=== PATIENT | male | born 1995 | race Caucasian/White ===

== ENCOUNTER 2018-03-25 17:35 | Emergency (ER) | payer OTHER ==
[2018-03-25 17:48] VITALS: BP 158/98; PULSE 99; TEMP 98.5; BMI 33.7
--- NOTE | 2018-03-25 17:49 | PDOC ---
Rapid Medical Evaluation Time Seen by Provider: 03/25/18 17:45 Medical Evaluation: Allergies Allergy/AdvReac Type Severity Reaction Status Date / Time No Known Allergies Allergy Verified 03/25/18 17:40 03/25/18 17:46 Pt. with penile drainage presents for STD screening. Exam: AAOx3 NAD, ambulatory Orders: STD testing Pt to proceed to ED for further evaluation Discharge Disposition - Diagnosis Screening for STD (sexually transmitted disease) - Referrals - Patient Instructions - Post Discharge Activity
[2018-03-25] MEDS ORDERED: AZITHROMYCIN 250 MG TABLET PO ONE (17:58)
--- NOTE | 2018-03-25 18:07 | PDOC ---
History of Present Illness - General Chief Complaint: Penile Drainage Stated Complaint: STD TESTING Time Seen by Provider: 03/25/18 17:45 - History of Present Illness Initial Comments: 22-year-old male free of any comorbidities presents for evaluation requesting STD testing. He states he's had unprotected sexual relationship with a new partner. He has no systemic symptoms he has mild discomfort in his left inguinal area. No other associated symptoms no penile discharge. 03/25/18 18:04 Past History - Past Medical History Allergies/Adverse Reactions: Allergies Allergy/AdvReac Type Severity Reaction Status Date / Time No Known Allergies Allergy Verified 03/25/18 17:40 Home Medications: Ambulatory Orders NK [No Known Home Medication] 03/25/18 COPD: No - Immunization History Immunization Up to Date: Yes - Suicide/Smoking/Psychosocial Hx Smoking History: Never smoked Information on smoking cessation initiated: No Hx Alcohol Use: No Drug/Substance Use Hx: No Substance Use Type: None Review of Systems - Review of Systems : Yes: See HPI All Other Systems: Reviewed and Negative *Physical Exam - Vital Signs Last Vital Signs Temp Pulse Resp BP Pulse Ox 98.5 F 99 H 16 158/98 98 03/25/18 17:43 03/25/18 17:43 03/25/18 17:43 03/25/18 17:43 03/25/18 17:43 - Physical Exam Comments: The external genitalia are normal there is no tenderness or inguinal adenopathy there is no discharge from the urethra 03/25/18 18:06 Medical Decision Making - Medical Decision Making Patient is requesting HIV testing which we can do in the emergency room. Given his past sexual history he would like to be treated for gonorrhea and chlamydia which I have ordered the appropriate antibiotics. He will wait for HIV results. 03/25/18 18:06 *DC/Admit/Observation/Transfer Diagnosis at time of Disposition: Screening for STD (sexually transmitted disease) - Discharge Dispostion Disposition: HOME Condition at time of disposition: Stable Decision to Admit order: No - Referrals - Patient Instructions Printed Discharge Instructions: How to Detect and Treat STDs, Facts About Sexually Transmitted Infections Additional Instructions: Return to the emergency room should you experience any symptoms such as discharge from the penis. Your HIV test was negative. You have treated for gonorrhea and chlamydia. Follow-up with primary care physician in the next 1-2 days for further evaluation and treatment management. - Post Discharge Activity
[2018-03-25 18:21] LABS: URINE APPEARANCE CLEAR; URINE BILIRUBIN NEGATIVE (<2.0 mg/dL); URINE COLOR YELLOW; URINE GLUCOSE (UA) NEGATIVE (NEGATIVE); URINE KETONE NEGATIVE (NEGATIVE); URINE LEUK ESTERASE NEGATIVE (NEGATIVE); URINE NITRITE NEGATIVE (NEGATIVE); URINE PROTEIN NEGATIVE (NEGATIVE)
[2018-03-25] MEDS ORDERED: AZITHROMYCIN 250 MG TABLET ONE (18:27)
[2018-03-25] MEDS ORDERED: AZITHROMYCIN 500 MG TABLET ONE (18:28)
== END 2018-03-25 20:32 | disposition home or self-care (01) ==
LOC: JERFT 17:35
DX: Z11.3 Encounter for screening for infections with a predominantly sexual mode of transmission (principal)
CPT/HCPCS: 36415; 81003; 86593; 87086; 87491; 87591; 96372; 99281-25